=== PATIENT | male | born 1945 | race Caucasian/White ===

== ENCOUNTER 2016-03-17 14:18 | Emergency (ER) | payer MEDICAID, MEDICARE ==
[2016-03-17] MEDS ORDERED: ALBUTEROL NEB 2.5 MG/3 ML INH STA (15:21)
[2016-03-17] MEDS ORDERED: ALBUTEROL NEB 2.5 MG/3 ML INH ONE (15:35)
== END 2016-03-17 16:42 | disposition home or self-care (01) ==
DX: J06.9 Acute upper respiratory infection, unspecified (principal); B97.89 Other viral agents as the cause of diseases classified elsewhere; R14.0 Abdominal distension (gaseous); I10 Essential (primary) hypertension; Z87.891 Personal history of nicotine dependence
CPT/HCPCS: 36415; 71020; 80053; 83690; 85025; 85610; 94640; 99283; 99284; G0480; J7613

== ENCOUNTER 2016-08-31 10:17 | Outpatient (CLI) | payer MEDICAID, MEDICARE | END 2016-08-31 10:18 | disposition critical access hospital (66) | LOC: EMS 10:17 | PROVIDERS: ATTEND Surgery | DX: R20.0 Anesthesia of skin (principal) | CPT/HCPCS: A0425; A0429 ==

== ENCOUNTER 2016-08-31 10:41 | Emergency (ER) | payer MEDICARE, MEDICAID ==
--- NOTE | 2016-08-31 11:11 | ED Physician Documentation ---
History of Present Illness - Stated complaint Stated Complaint: SOA - Chief complaint Chief Complaint: General - History obtained from History obtained from: Patient, EMS - History of Present Illness Pain level max: 0 Pain level now: 0 Improved by: nothing Worsened by: nothing - Additonal information Additional information: Patient arrives to the emergency department with no complaints. He states that his brother and his mother called the ambulance for him. The EMS crew states that the brother said that the patient was short of breath. Patient states that he is always short of breath and that this is not any worse than usual. Patient also states that he has not been taking his blood pressure medications. Does not remember what they are. The paramedics did not bring the medications with him. Review of Systems Ten Systems: 10 systems reviewed and negative Constitutional: denies: Fever, Chills Ears: denies: Ear pain Nose: denies: Rhinorrhea / runny nose, Congestion Throat: denies: Sore throat Cardiac: denies: Chest pain / pressure Respiratory: denies: Hemoptysis, Wheezing GI: denies: Abdominal Pain, Nausea, Vomiting, Diarrhea Skin: denies: Rash Musculoskeletal: denies: Neck pain, Back pain Neurologic: denies: Focal weakness, Numbness, Syncope, Confused, Altered mental status, Headache PD PAST MEDICAL HISTORY - Past Medical History Past Medical History: Yes Cardiovascular: Hypertension, High cholesterol GI: GERD Psych: Anxiety - Past Surgical History Past Surgical History: Yes General: EGD, Colonoscopy HEENT: Tonsil/Adenoidectomy - Present Medications Home Medications: Ambulatory Orders Medication Instructions Recorded Confirmed Albuterol Sulfate [Proventil Hfa 1 - 2 puffs IH Q4H PRN #1 03/17/16 Inhaler] hfa.[email or web address].[email or web address] - Allergies Allergies/Adverse Reactions: Allergies Allergy/AdvReac Type Severity Reaction Status Date / Time No Known Drug Allergies Allergy Verified 03/17/16 14:23 - Social History Does the pt smoke?: No Smoking Status: Former smoker Does the pt drink ETOH?: No Does the pt have substance abuse?: No PD ED PE NORMAL - Vitals Vital signs reviewed: Yes - General General: Alert and oriented X 3, No acute distress - HEENT HEENT: PERRL, Moist mucous membranes - Neck Neck: Supple, no meningeal sign - Cardiac Cardiac: RRR, Strong equal pulses - Respiratory Respiratory: No respiratory distress, Clear bilaterally - Abdomen Abdomen: Soft, Non tender, Other (mild distention with ascites) - Back Back: No spinal TTP - Derm Derm: Warm and dry - Neuro Neuro: Alert and oriented X 3 - Psych Psych: Normal mood, Normal affect Results - Vitals Vitals: Vital Signs - 24 hr 08/31/16 10:43 Temperature 36.6 C Heart Rate 107 H Respiratory 18 Rate Blood Pressure 198/129 H O2 Saturation 99 Oxygen O2 Source Room air - EKG (time done) 1054 Rate: Rate (enter#) (108) Rhythm: Sinus tachycardia [place]: Normal Intervals: Normal [place] QRS: Normal Ischemia: Normal ST segments, Q waves (III, aVF) PD MEDICAL DECISION MAKING - ED course Complexity details: reviewed results, re-evaluated patient, considered differential, d/w patient ED course: Patient is a 71-year-old male who lives alone whose brother and mother called an ambulance for him today. He has no complaints. The nurse spoke with the brother on the phone who also stated there were no acute issues, but he was concerned about the patient caring for himself. The patient is well kept here and doesn't want a social work instructor eval. He is cooperative, alert and oriented 3. He has not been taking his blood pressure medications and will restart this when he returns home and follow-up closely with [place] for [place] evaluation. No chest pain, headaches or shortness of breath. Does not need emergent paracentesis at this time. Is afebrile. His heart rate is actually lower than it usually is, normal heart rate is 115- 120 based on prior visits. Patient counseled regarding signs and symptoms for which I believe and urgent re-evaluation would be necessary. Patient with good understanding of and agreement to plan and is comfortable going home at this time This document was made in part using voice recognition software. While efforts are made to proofread this document, sound alike and grammatical errors may occur. Departure - Departure Disposition: 01 Home, Self Care Clinical Impression: Hypertension Qualifiers: Hypertension type: essential hypertension Qualified Code(s): I10 - Essential ( primary) hypertension Condition: Good Instructions: ED HTN Established Follow-Up: Andres Bermudez MD [Primary Care Provider] - Within 1 week Comments: Return if you worsen. You need to follow up with your doctor this week about your blood pressure. I cannot adjust your medications as I do not know what medications you are taking.
[2016-08-31 12:39] VITALS: BP 187/122
== END 2016-08-31 13:00 | disposition home or self-care (01) ==
LOC: EDUNIT# → ED 10:41
DX: I10 Essential (primary) hypertension (principal); R00.0 Tachycardia, unspecified; Z87.891 Personal history of nicotine dependence; Z91.14 Patient's other noncompliance with medication regimen
CPT/HCPCS: 93005; 99283

== ENCOUNTER 2017-06-25 04:55 | Outpatient (CLI) | payer MEDICARE, MEDICAID | END 2017-06-25 04:56 | disposition EMS.NT | LOC: EMS 04:55 | PROVIDERS: ATTEND Surgery | DX: R29.6 Repeated falls (principal); S01.21XA Laceration without foreign body of nose, initial encounter; M54.5 Low back pain; W18.30XA Fall on same level, unspecified, initial encounter; Y92.009 Unspecified place in unspecified non-institutional (private) residence as the place of occurrence of the external cause; Z72.89 Other problems related to lifestyle ==

== ENCOUNTER 2017-07-01 07:34 | Emergency (ER) | payer MEDICARE, MEDICAID ==
--- NOTE | 2017-07-01 07:43 | ED Physician Documentation ---
PD HPI DYSPNEA - Stated complaint Stated Complaint: WHEEZING/SOA - Chief complaint Chief Complaint: Resp - History obtained from History obtained from: Patient, Family () - History of Present Illness Timing - onset: How many days ago (several days to a week of worsening dyspnea and wheezing, more noted at night. No real cough nor fevers. Has history of COPD and had been out of Anora (inhaler med) and resumed it couple days ago. had him off recent HCTZ and BP meds as was also going through alcohol withdrawal and symptoms, so not wanting him to have to go to bathroom so often. He has been sober about 10 days and is improved from the withdrawal. Still a little foggy thought process. He is having worst breathing at nights. Had had leg edema but that is improved from last month after starting the HCTZ.) Timing - duration: Days Timing - details: Gradual onset, Still present, Waxing and waning Inciting event(s): Out of meds (for some of them). No: Immobilization/travel Improved by: Rest, Sitting up Worsened by: Exertion, Laying flat Associated symptoms: Wheezing, Bilateral edema. No: Fever, Cough, Chest pain / discomfort, Palpitations Recently seen: Clinic (few weeks ago and was started on HCTZ. Continued on BP med. Given Ventolin inhaler. Continued on long acting inhaler meds (Anora).) Review of Systems Constitutional: denies: Fever, Chills Nose: reports: Rhinorrhea / runny nose, Congestion Throat: denies: Sore throat Cardiac: reports: Pedal edema. denies: Chest pain / pressure, Palpitations, Calf pain Respiratory: reports: Dyspnea, Wheezing. denies: Cough GI: denies: Nausea, Vomiting, Diarrhea : denies: Dysuria, Frequency Neurologic: reports: Generalized weakness, Confused (has been that way with the alcohol cessation and withdrawal.). denies: Focal weakness, Numbness PD PAST MEDICAL HISTORY - Past Medical History Cardiovascular: Hypertension, High cholesterol Respiratory: COPD Neuro: None Endocrine/Autoimmune: None GI: GERD Psych: Anxiety - Past Surgical History Past Surgical History: Yes General: EGD, Colonoscopy HEENT: Tonsil/Adenoidectomy - Present Medications Home Medications: Ambulatory Orders Medication Instructions Recorded Confirmed Albuterol Sulfate [Proventil Hfa 1 - 2 puffs IH Q4H PRN #1 03/17/16 Inhaler] hfa.[email or web address].ad Albuterol Sulf [Ventolin Hfa 1 - 2 puffs INH Q4HR PRN #1 inhaler 07/01/17 Inhaler] Amlodipine Besylate 10 mg PO DAILY 07/01/17 Aspirin 07/01/17 Dexamethasone [Decadron] 4 mg PO DAILY #5 tablet 07/01/17 Doxycycline Monohydrate 100 mg PO BID #14 tablet 07/01/17 Gabapentin 07/01/17 S-Adenosylmethionine Sul Tosyl 07/01/17 [Claude-E] Umeclidinium Brm/Vilanterol Tr 07/01/17 [Anoro Ellipta 62.5-25 Mcg INH] hydroCHLOROthiazide 25 mg PO DAILY 07/01/17 [Hydrochlorothiazide] - Allergies Allergies/Adverse Reactions: Allergies Allergy/AdvReac Type Severity Reaction Status Date / Time No Known Drug Allergies Allergy Verified 03/17/16 14:23 - Social History Does the pt smoke?: No Smoking Status: Former smoker Does the pt drink ETOH?: Yes ETOH Use: Other (heavy drinker until a week and a half ago, when had him stop. Has had withdrawal the past week but is improving from that. ) Does the pt have substance abuse?: No - Family History Family history: reports: Non contributory PD ED PE NORMAL - Vitals Vital signs reviewed: Yes - General General: Alert and oriented X 3, No acute distress, Well developed/nourished - HEENT HEENT: PERRL, EOMI (no diplopia. Bruising noted around the eye. ), Moist mucous membranes, Pharynx benign, Other (bruising noted around eyes and on right side of head; says from recent falls when intoxicated and then withdrawal. ) - Neck Neck: Supple, no meningeal sign, No adenopathy - Cardiac Cardiac: RRR, No murmur - Respiratory Respiratory: No: Clear bilaterally (wheezing noted bilaterally. Some faint crackles in bases. No coarse sounds. ) - Abdomen Abdomen: Soft, Non tender - Derm Derm: Normal color, Warm and dry - Extremities Extremities: No deformity, No tenderness to palpate, Normal ROM s pain, No calf tenderness / cord, Other (1+ edema in both legs and ankles. ) Results - Vitals Vitals: Vital Signs - 24 hr 07/01/17 07/01/17 07/01/17 07:40 09:15 10:24 Temperature 36.6 C Heart Rate 104 H 95 95 Respiratory 26 H 16 20 Rate Blood Pressure 163/104 H 157/102 H O2 Saturation 94 97 Oxygen O2 Source Room air - Labs Labs: Laboratory Tests 07/01/17 07/01/17 07/01/17 08:36 08:36 08:36 WBC 8.1 RBC 4.60 L Hgb 15.2 Hct 43.9 MCV 95.5 H MCH 33.0 H MCHC 34.6 RDW 16.4 H Plt Count 160 MPV 7.4 Neut # Not Reportable Lymph # Not Reportable [place] # Not Reportable Eos # Not Reportable Baso # Not Reportable Absolute Nucleated RBC Not Reportable Total Counted 100 Band Neuts % (Manual) 3 Reactive Lymphs % (Man) 1 Abnorm Lymph % (Manual) 0 Nucleated RBC % Not Reportable Neutrophils # (Manual) 5.3 Lymphocytes # (Manual) 0.8 L Monocytes # (Manual) 1.8 H Eosinophils # (Manual) 0.2 Basophils # (Manual) 0.0 Differential Comment MANUAL DIFFERENTIAL Manual Slide Review Indicated Platelet Estimate NORMAL (130-450,000) Platelet Morphology 1+ LARGE PLATELETS RBC Morph Micro Appear NORMAL APPEARANCE Sodium 134 L Potassium 3.0 L Chloride 91 L Carbon Dioxide 33 H Anion Gap 10.0 BUN 30 H Creatinine 1.5 H Estimated GFR (MDRD) 46 L Glucose 92 Calcium 9.0 Magnesium 1.7 Total Bilirubin 1.1 H AST 33 ALT 33 Alkaline Phosphatase 95 Troponin I < 0.04 B-Natriuretic Peptide Total Protein 6.9 Albumin 4.1 Globulin 2.8 Albumin/Globulin Ratio 1.5 Lipase 55 H Ethyl Alcohol < 5.0 07/01/17 08:36 WBC RBC Hgb Hct MCV MCH MCHC RDW Plt Count MPV Neut # Lymph # [place] # Eos # Baso # Absolute Nucleated RBC Total Counted Band Neuts % (Manual) Reactive Lymphs % (Man) Abnorm Lymph % (Manual) Nucleated RBC % Neutrophils # (Manual) Lymphocytes # (Manual) Monocytes # (Manual) Eosinophils # (Manual) Basophils # (Manual) Differential Comment Manual Slide Review Platelet Estimate Platelet Morphology RBC Morph Micro Appear Sodium Potassium Chloride Carbon Dioxide Anion Gap BUN Creatinine Estimated GFR (MDRD) Glucose Calcium Magnesium Total Bilirubin AST ALT Alkaline Phosphatase Troponin I B-Natriuretic Peptide 41 Total Protein Albumin Globulin Albumin/Globulin Ratio Lipase Ethyl Alcohol - Rads (name of study) chest xray Radiology: Prelim report reviewed (elevated left diaphragm and some atelectasis. ), EMP read contemporaneously head CT Radiology: Prelim report reviewed (no ICH. Has right orbital fracture.) PD MEDICAL DECISION MAKING - ED course Complexity details: reviewed results, re-evaluated patient, considered differential, d/w patient, d/w family () Departure - Departure Disposition: 01 Home, Self Care Clinical Impression: Acute exacerbation of COPD with asthma, Hypokalemia Dyspnea Qualifiers: Dyspnea type: shortness of breath Qualified Code(s): R06.02 - Shortness of breath Orbital floor fracture Qualifiers: Encounter type: initial encounter Fracture type: closed Laterality: right Qualified Code(s): S02.31XA - Fracture of orbital floor, right side, initial encounter for closed fracture Clinical Impression: (Ruled Out): Congestive heart failure Condition: Stable Record reviewed to determine appropriate education?: Yes Instructions: ED Dyspnea Shortness of Breath Follow-Up: Andres Bermudez MD [Primary Care Provider] - Prescriptions: Albuterol Sulf [Ventolin Hfa Inhaler] 1 - 2 puffs INH Q4HR PRN #1 inhaler PRN Reason: Shortness Of Air/Wheezing Dexamethasone [Decadron] 4 mg PO DAILY #5 tablet Doxycycline Monohydrate 100 mg PO BID #14 tablet Comments: Continue usual medications. Use the albuterol inhaler with spacer 2-3 puffs 4 times a day for the next 7-10 days and extra times if needed for wheezing. Decadron steroid daily for 5 more days. Doxycycline twice daily for a week for possible infection. He could also do a potassium supplements for the next week. There is no signs of congestive failure or heart failure at this time. It appears to be the airways of COPD and possible infection. Recheck if not improving over the next few days. Try to follow-up with your primary care in this coming week. Discharge Date/Time: 07/01/17 10:25
[2017-07-01] MEDS ORDERED: IPRATROPIUM/ALBUTEROL 3 ML NEB INH STA (07:57)
--- NOTE | 2017-07-01 08:40 | XRAY Report ---
EXAM: CHEST RADIOGRAPHY EXAM DATE: 07/01/2017 08:21 AM. CLINICAL HISTORY: Dyspnea and wheezing. COMPARISON: 03/17/2016 chest x-ray. TECHNIQUE: 2 views. FINDINGS: Lungs/Pleura: Elevated left hemidiaphragm with adjacent atelectasis and potential airspace disease. Mediastinum: Tortuous thoracic aorta with dense atherosclerotic calcifications. Other: None. IMPRESSION: 1. Elevated left hemidiaphragm with adjacent atelectasis and potential airspace disease. Question muc ous plugging or other cause of bronchial obstruction. Recommend clinical correlation and follow-up. [facility] Referring Provider Line: [phone] SITE ID: [id number]
[2017-07-01 08:55] LABS: BASOPHILS % (AUTO) 0.8 %; EOSINOPHILS % (AUTO) 1.8 %; HGB - HEMOGLOBIN 15.2 g/dL (14.0-18.0); LYMPHOCYTES % (AUTO) 9.4 %; MEAN CORPUSCULAR HGB CONC 34.6 g/dL (32.0-36.0); MEAN CORPUSCULAR VOLUME 95.5 fL (80.0-94.0); MEAN PLATELET VOLUME 7.4 fL (7.4-11.4); MONOCYTES % (AUTO) 22.1 %; NEUTROPHILS % (AUTO) 65.9 %; PLT - PLATELET COUNT 160 10^3/uL (130-450); RED CELL DISTRIBUTION WIDTH 16.4 % (12.0-15.0); WHITE BLOOD COUNT 8.1 x10^3/uL (4.8-10.8)
[2017-07-01 08:59] LABS: ABNORMAL LYMPHS % (MANUAL) 0 %
--- NOTE | 2017-07-01 09:10 | CT Report ---
EXAM: CT HEAD EXAM DATE: 07/01/2017 08:47 AM. CLINICAL HISTORY: Recent falls and facial bruisings. COMPARISON: None. TECHNIQUE: Multiaxial CT images were obtained from the foramen magnum to the vertex. Reformats: Coron al. IV contrast: None. In accordance with CT protocol optimization, one or more of the following dose reduction techniques w ere utilized for this exam: automated exposure control, adjustment of mA and/or KV based on patient s ize, or use of iterative reconstructive technique. FINDINGS: Parenchyma: No intraparenchymal hemorrhage. No evidence of mass, midline shift, or CT findings of inf arction. Weaver-white differentiation is distinct. Mild probable chronic microvascular ischemic change in the periventricular white matter and centrum semiovale. Extraaxial Spaces: Normal for age. No subdural or epidural collections identified. Ventricles: Normal in size and position accounting for mild generalized cerebral and cerebellar volum e loss. Sinuses and Orbits: Partial opacification of the right maxillary sinus with dependent debris and some hyperdense material, possibly blood products. Minimal opacity, possibly small mucous retention cyst or polyp in the left sphenoid sinus. Remaining paranasal sinuses and left orbit are unremarkable. Bones: There is a right orbital floor blowout fracture, of indeterminate age. There is mild inferior displacement of the inferior orbital floor fragment, the right inferior rectus muscle, and some orbit al fat. The right globe appears intact. There may be nondisplaced right nasal bone fracture of indete rminate age. Other: None. IMPRESSION: 1. No acute intracranial abnormality. No skull fracture. 2. Right orbital floor blowout fracture of indeterminate age with mild displacement of orbital conten ts as noted above. 3. Partial opacification of the right maxillary sinus with some hyperdense material, possibly blood p roducts. 4. Possible nondisplaced right nasal bone fracture of indeterminate age. 5. Mild chronic atrophic and probable microvascular ischemic changes. [facility] Referring Provider Line: [phone] SITE ID: [id number]
[2017-07-01 09:14] LABS: ALBUMIN 4.1 g/dL (3.2-5.5); ALBUMIN/GLOBULIN RATIO 1.5 (1.0-2.2); ALKALINE PHOSPHATASE 95 IU/L (42-121); ALT ALANINE AMINOTRANSFERASE 33 IU/L (10-60); AST ASPARTATE AMINOTRANSFERASE 33 IU/L (10-42); BILIRUBIN,TOTAL 1.1 mg/dL (0.2-1.0); BUN - BLOOD UREA NITROGEN 30 mg/dL (6-20); CARBON DIOXIDE - CO2 33 mmol/L (21-32); CHLORIDE 91 mmol/L (101-111); CREATININE 1.5 mg/dL (0.6-1.2); GFR - MDRD 46 (>89); GLUCOSE 92 mg/dL (70-100); LIPASE 55 U/L (22-51); MAGNESIUM 1.7 mg/dL (1.7-2.8); SODIUM 134 mmol/L (135-145); TOTAL PROTEIN 6.9 g/dL (6.7-8.2)
[2017-07-01 09:31] LABS: BAND NEUTROPHILS % (MANUAL) 3 %; EOSINOPHILS # (MANUAL) 0.2 10^3/uL (0-0.7); LYMPHOCYTES # (MANUAL) 0.8 10^3/uL (1.5-3.5); LYMPHOCYTES % (MANUAL) 9 %; MONOCYTES # (MANUAL) 1.8 10^3/uL (0.0-1.0); NEUTROPHILS # (MANUAL) 5.3 10^3/uL (1.5-6.6); NEUTROPHILS % (MANUAL) 62 %
[2017-07-01] MEDS ORDERED: POTASSIUM BICARB 25 MEQ TABLET PO STA (09:34)
[2017-07-01] MEDS ORDERED: DEXAMETHASONE 10 MG/ML VIAL IVP STA (09:34)
[2017-07-01] MEDS ORDERED: DOXYCYCLINE 100 MG TABLET PO STA (09:34)
[2017-07-01 09:35] LABS: DIFFERENTIAL COMMENT MANUAL DIFFERENTIAL; PLATELET ESTIMATE, MANUAL NORMAL (130-450,000) (NORMAL); PLATELET MORPHOLOGY 1+ LARGE PLATELETS (NORMAL); RBC MORPHOLOGY (MULTIPLE) NORMAL APPEARANCE (NORMAL)
[2017-07-01 10:25] VITALS: BP 157/102
== END 2017-07-01 10:25 | disposition home or self-care (01) ==
LOC: ED 07:34
DX: J44.1 Chronic obstructive pulmonary disease with (acute) exacerbation (principal); S02.31XA Fracture of orbital floor, right side, initial encounter for closed fracture; X58.XXXA Exposure to other specified factors, initial encounter; I10 Essential (primary) hypertension; E78.00 Pure hypercholesterolemia, unspecified; K21.9 Gastro-esophageal reflux disease without esophagitis; Z79.82 Long term (current) use of aspirin; Z87.891 Personal history of nicotine dependence
CPT/HCPCS: 36415; 70450; 71046; 80053; 83690; 83735; 83880; 84484; 85025; 93005; 94640; 96374; 99283; 99284; A9270; G0480; 80320

== ENCOUNTER 2017-07-14 08:25 | Outpatient (CLI) | payer MEDICARE, MEDICAID | END 2017-07-14 08:26 | disposition EMS.NT | LOC: EMS 08:25 | PROVIDERS: ATTEND Surgery | DX: R53.1 Weakness (principal); R47.81 Slurred speech; W18.30XA Fall on same level, unspecified, initial encounter; Y92.003 Bedroom of unspecified non-institutional (private) residence as the place of occurrence of the external cause; Z72.89 Other problems related to lifestyle ==

== ENCOUNTER 2017-07-26 21:25 | Outpatient (CLI) | payer MEDICAID, MEDICARE | END 2017-07-26 21:26 | disposition critical access hospital (66) | LOC: EMS 21:25 | PROVIDERS: ATTEND Surgery | DX: R41.82 Altered mental status, unspecified (principal); R15.9 Full incontinence of feces; R32 Unspecified urinary incontinence; Z72.89 Other problems related to lifestyle | CPT/HCPCS: A0425; A0427 ==

== ENCOUNTER 2017-07-26 21:56 | Emergency (ER) | payer MEDICARE, MEDICAID ==
[2017-07-26 22:22] LABS: HGB - HEMOGLOBIN 14.5 g/dL (14.0-18.0); WHITE BLOOD COUNT 4.2 x10^3/uL (4.8-10.8)
[2017-07-26 22:26] LABS: BASOPHILS % (AUTO) 0.5 %; LYMPHOCYTES % (AUTO) 17.2 %; MEAN CORPUSCULAR HEMOGLOBIN 32.3 pg (27.0-31.0); MEAN CORPUSCULAR HGB CONC 32.5 g/dL (32.0-36.0); MEAN CORPUSCULAR VOLUME 99.5 fL (80.0-94.0); MEAN PLATELET VOLUME 7.3 fL (7.4-11.4); MONOCYTES % (AUTO) 8.8 %; NEUTROPHILS % (AUTO) 72.5 %; PLT - PLATELET COUNT 67 10^3/uL (130-450); RED BLOOD COUNT 4.49 10^6/uL (4.70-6.10); RED CELL DISTRIBUTION WIDTH 18.9 % (12.0-15.0)
[2017-07-26 22:29] LABS: VBG BASE EXCESS 1.4 mmol/L (-2 - +2); VBG PCO2 59.1 mmHg (41-51); VBG PH 7.312 (7.31-7.41); VBG PO2 49.2 mmHg (25-47)
[2017-07-26 22:31] LABS: ABNORMAL LYMPHS % (MANUAL) 0 %
[2017-07-26 22:40] LABS: ALBUMIN 3.6 g/dL (3.2-5.5); ALBUMIN/GLOBULIN RATIO 1.4 (1.0-2.2); ALKALINE PHOSPHATASE 65 IU/L (42-121); ALT ALANINE AMINOTRANSFERASE 31 IU/L (10-60); AST ASPARTATE AMINOTRANSFERASE 40 IU/L (10-42); BILIRUBIN,TOTAL 1.9 mg/dL (0.2-1.0); BUN - BLOOD UREA NITROGEN 27 mg/dL (6-20); CALCIUM 7.5 mg/dL (8.5-10.3); CARBON DIOXIDE - CO2 31 mmol/L (21-32); CHLORIDE 93 mmol/L (101-111); CK- CREATINE KINASE 113 IU/L (22-269); CREATININE 1.1 mg/dL (0.6-1.2); GFR - MDRD 66 (>89); GLUCOSE 118 mg/dL (70-100); LIPASE 37 U/L (22-51); SODIUM 137 mmol/L (135-145); TOTAL PROTEIN 6.2 g/dL (6.7-8.2)
[2017-07-26 22:40] LABS: GLUCOSE, URINE (UA) NEGATIVE (NEGATIVE); KETONES,URINE (UA) 40 mg/dL (NEGATIVE); LEUKOCYTE ESTERASE, URINE NEGATIVE (NEGATIVE); NITRITE,URINE NEGATIVE (NEGATIVE); OCCULT BLOOD,URINE MODERATE (NEGATIVE); PROTEIN,URINE 100 mg/dL (NEGATIVE); UROBILINOGEN,URINE 1 (NORMAL) E.U./dL (NORMAL)
[2017-07-26 22:41] LABS: CLARITY,URINE CLEAR (CLEAR)
[2017-07-26 22:43] LABS: BILIRUBIN,URINE NEGATIVE (NEGATIVE); ICTOTEST,URINE NEGATIVE
[2017-07-26 22:48] LABS: BACTERIA,URINE Rare /HPF (None Seen); MUCUS,URINE Few Strands; SQUAMOUS EPITHELIAL CELL,UR MOD Squamous (<= Few)
[2017-07-26 22:49] LABS: BAND NEUTROPHILS % (MANUAL) 2 %; EOSINOPHILS # (MANUAL) 0.2 10^3/uL (0-0.7); KETONES, SERUM (ACETEST) SMALL (NEGATIVE); LYMPHOCYTES # (MANUAL) 0.5 10^3/uL (1.5-3.5); LYMPHOCYTES % (MANUAL) 10 %; METAMYELOCYTES % (MANUAL) 3 %; MONOCYTES # (MANUAL) 0.4 10^3/uL (0.0-1.0); MYELOCYTES % (MANUAL) 2 %; NEUTROPHILS # (MANUAL) 2.9 10^3/uL (1.5-6.6); NEUTROPHILS % (MANUAL) 67 %
[2017-07-26 22:50] LABS: PLATELET ESTIMATE, MANUAL DECREASED (<130,000) (NORMAL); PLATELET MORPHOLOGY NORMAL APPEARANCE (NORMAL)
--- NOTE | 2017-07-26 22:59 | XRAY Preliminary Report ---
Exam: XR CHEST 1 VIEW X-RAY IMPRESSION: 1. Hypoventilatory exam with findings suggestive of mild CHF/volume overload with possible small left pleural effusion. 2. Asymmetric elevation of the left hemidiaphragm as before, though not present on remote prior exam, this could be due to chronic volume loss in the left lung or phrenic nerve dysfunction. Left lower l madeline airspace disease difficult to exclude. 3. Findings suggestive of new mild cardiomegaly and/or pericardial effusion. [facility] SITE ID: [id number]
--- NOTE | 2017-07-26 23:07 | XRAY Report ---
EXAM: CHEST RADIOGRAPHY EXAM DATE: 07/26/2017 10:22 PM. CLINICAL HISTORY: Hypoxia. COMPARISON: 07/01/2017 and 03/17/2016. TECHNIQUE: 1 view. FINDINGS: Lungs/Pleura: Lung volumes are low and there is asymmetric elevation of the left hemidiaphragm. Left lung base opacity difficult to exclude. There may be a small left pleural effusion. No significant ri ght pleural effusion. Pulmonary vasculature is engorged and indistinct with peribronchial cuffing. No pneumothorax. Mediastinum: The heart appears mildly enlarged, increased since prior exam, even allowing for frontal technique and hypoventilation. The vascular pedicle is prominent. There is calcific atherosclerosis of the aorta. The lucien are obscured. Other: None. IMPRESSION: 1. Hypoventilatory exam with findings suggestive of mild CHF/volume overload with possible small left pleural effusion. 2. Asymmetric elevation of the left hemidiaphragm as before, though not present on remote prior exam, this could be due to chronic volume loss in the left lung or phrenic nerve dysfunction. Left lower l madeline airspace disease difficult to exclude. 3. Findings suggestive of new mild cardiomegaly and/or pericardial effusion. [facility] Referring Provider Line: [phone] SITE ID: [id number]
[2017-07-26] MEDS ORDERED: FUROSEMIDE 40 MG/4 ML VIAL IVP STA (23:23)
--- NOTE | 2017-07-26 23:44 | ED Physician Documentation ---
History of Present Illness - Stated complaint Stated Complaint: AMS - Chief complaint Chief Complaint: Neuro - History obtained from History obtained from: Patient, Family, EMS - History of Present Illness Timing: Unknown - Additonal information Additional information: Patient is a 71 year old male with a history of htn, alcoholism and copd who was brought in by ems for altered mental status and hypoxia. According to patient, ems and family, the patient's had come down from [place] to check in on the patient, which she does every few months or so. She found to patient to be more confused than usual, as well as irregular breathing. She also reports that the patient has been falling a lot. She states that the patient quit eating for the most part and only drinks. Review of Systems Unable to obtain: Confused PD PAST MEDICAL HISTORY - Past Medical History Past Medical History: Yes Cardiovascular: Hypertension, High cholesterol Respiratory: COPD Endocrine/Autoimmune: None GI: GERD Psych: Anxiety - Past Surgical History Past Surgical History: Yes General: EGD, Colonoscopy HEENT: Tonsil/Adenoidectomy - Present Medications Home Medications: Ambulatory Orders Medication Instructions Recorded Confirmed Albuterol Sulfate [Proventil Hfa 1 - 2 puffs IH Q4H PRN #1 03/17/16 Inhaler] [email or web address] Albuterol Sulf [Ventolin Hfa 1 - 2 puffs INH Q4HR PRN #1 inhaler 07/01/17 Inhaler] Amlodipine Besylate 10 mg PO DAILY 07/01/17 Aspirin 07/01/17 Dexamethasone [Decadron] 4 mg PO DAILY #5 tablet 07/01/17 Doxycycline Monohydrate 100 mg PO BID #14 tablet 07/01/17 Gabapentin 07/01/17 S-Adenosylmethionine Sul Tosyl 07/01/17 [Claude-E] Umeclidinium Brm/Vilanterol Tr 07/01/17 [Anoro Ellipta 62.5-25 Mcg INH] hydroCHLOROthiazide 25 mg PO DAILY 07/01/17 [Hydrochlorothiazide] - Allergies Allergies/Adverse Reactions: Allergies Allergy/AdvReac Type Severity Reaction Status Date / Time No Known Drug Allergies Allergy Verified 07/26/17 22:08 - Social History Does the pt smoke?: No Smoking Status: Never smoker Does the pt drink ETOH?: Yes Does the pt have substance abuse?: No - Immunizations Immunizations are current?: No - POLST Patient has POLST: No PD ED PE NORMAL - Vitals Vital signs reviewed: Yes - HEENT HEENT: Atraumatic - Neck Neck: No JVD PD ED PE EXPANDED - General General: Alert, Disheveled, poorly kept - HEENT HEENT: Dry mucous membranes - Cardiac Cardiac: Tachy - Respiratory Respiratory: Labored, Retractions - Abdomen Abdomen: Other (obese) - Extremities Extremities: Pedal edema bilateral - Neuro Neuro: Normal motor, Other (moves all extremities, alert and oriented times 2 ) - GCS Eye Opening: To Voice Motor: Obeys Commands Verbal: Confused Total: 13 Results - Vitals Vitals: Vital Signs - 24 hr 07/26/17 07/26/17 07/26/17 22:01 22:08 22:25 Temperature 36.2 C L Heart Rate 109 H 101 H 99 Respiratory 22 20 21 Rate Blood Pressure 188/130 H 182/124 H 143/96 H O2 Saturation 82 L 95 93 07/26/17 07/27/17 22:54 00:23 Temperature 36.5 C Heart Rate 97 100 Respiratory 21 15 Rate Blood Pressure 153/92 H 167/71 H O2 Saturation 93 96 Oxygen O2 Source Nasal cannula Oxygen Flow Rate 4 - EKG (time done) 2206 Rate: Rate (enter#) (101) Rhythm: Sinus tachycardia [place]: LAD Ischemia: Q waves Compare to prior EKG: Changed from prior EKG - Labs Labs: Laboratory Tests 07/26/17 07/26/17 07/26/17 22:13 22:13 22:13 WBC 4.2 L RBC 4.49 L Hgb 14.5 Hct 44.6 MCV 99.5 H MCH 32.3 H MCHC 32.5 RDW 18.9 H Plt Count 67 L MPV 7.3 L Neut # Not Reportable Lymph # Not Reportable [place] # Not Reportable Eos # Not Reportable Baso # Not Reportable Absolute Nucleated RBC Not Reportable Total Counted 100 Band Neuts % (Manual) 2 Reactive Lymphs % (Man) 3 Abnorm Lymph % (Manual) 0 Metamyelocytes % 3 H Myelocytes % 2 H Nucleated RBC % Not Reportable Neutrophils # (Manual) 2.9 Lymphocytes # (Manual) 0.5 L Monocytes # (Manual) 0.4 Eosinophils # (Manual) 0.2 Basophils # (Manual) 0.0 Nucleated RBCs 1 Manual Slide Review Indicated Platelet Estimate DECREASED (<130,000) Platelet Morphology NORMAL APPEARANCE RBC Morph Micro Appear 1+ MOOREZINA GOODE BODY VBG pH VBG pCO2 VBG pO2 VBG HCO3 VBG Total CO2 VBG O2 Saturation VBG Base Excess Sodium 137 Potassium 3.3 L Chloride 93 L Carbon Dioxide 31 Anion Gap 13.0 BUN 27 H Creatinine 1.1 Estimated GFR (MDRD) 66 L Glucose 118 H Lactic Acid Calcium 7.5 L Total Bilirubin 1.9 H AST 40 ALT 31 Alkaline Phosphatase 65 Total Creatine Kinase 113 Troponin I 0.15 B-Natriuretic Peptide Total Protein 6.2 L Albumin 3.6 Globulin 2.6 Albumin/Globulin Ratio 1.4 Lipase 37 TSH Urine Color Urine Clarity Urine pH Ur Specific [place] Urine Protein Urine Glucose (UA) Urine Ketones Urine Occult Blood Urine Nitrite Urine Bilirubin Urine Urobilinogen Ur Leukocyte Esterase Urine RBC Urine WBC Ur Squamous Epith Cells Urine Bacteria Urine Mucus Ur Microscopic Review Urine Culture Comments Ethyl Alcohol 248.4 Serum Ketones SMALL H 07/26/17 07/26/17 07/26/17 22:13 22:13 22:13 WBC RBC Hgb Hct MCV MCH MCHC RDW Plt Count MPV Neut # Lymph # [place] # Eos # Baso # Absolute Nucleated RBC Total Counted Band Neuts % (Manual) Reactive Lymphs % (Man) Abnorm Lymph % (Manual) Metamyelocytes % Myelocytes % Nucleated RBC % Neutrophils # (Manual) Lymphocytes # (Manual) Monocytes # (Manual) Eosinophils # (Manual) Basophils # (Manual) Nucleated RBCs Manual Slide Review Platelet Estimate Platelet Morphology RBC Morph Micro Appear VBG pH VBG pCO2 VBG pO2 VBG HCO3 VBG Total CO2 VBG O2 Saturation VBG Base Excess Sodium Potassium Chloride Carbon Dioxide Anion Gap BUN Creatinine Estimated GFR (MDRD) Glucose Lactic Acid 1.6 Calcium Total Bilirubin AST ALT Alkaline Phosphatase Total Creatine Kinase Troponin I B-Natriuretic Peptide 342 H Total Protein Albumin Globulin Albumin/Globulin Ratio Lipase TSH 2.76 Urine Color Urine Clarity Urine pH Ur Specific [place] Urine Protein Urine Glucose (UA) Urine Ketones Urine Occult Blood Urine Nitrite Urine Bilirubin Urine Urobilinogen Ur Leukocyte Esterase Urine RBC Urine WBC Ur Squamous Epith Cells Urine Bacteria Urine Mucus Ur Microscopic Review Urine Culture Comments Ethyl Alcohol Serum Ketones 07/26/17 07/26/17 22:13 22:31 WBC RBC Hgb Hct MCV MCH MCHC RDW Plt Count MPV Neut # Lymph # [place] # Eos # Baso # Absolute Nucleated RBC Total Counted Band Neuts % (Manual) Reactive Lymphs % (Man) Abnorm Lymph % (Manual) Metamyelocytes % Myelocytes % Nucleated RBC % Neutrophils # (Manual) Lymphocytes # (Manual) Monocytes # (Manual) Eosinophils # (Manual) Basophils # (Manual) Nucleated RBCs Manual Slide Review Platelet Estimate Platelet Morphology RBC Morph Micro Appear VBG pH 7.312 VBG pCO2 59.1 H VBG pO2 49.2 H VBG HCO3 29.2 H VBG Total CO2 31.0 H VBG O2 Saturation 77.9 VBG Base Excess 1.4 Sodium Potassium Chloride Carbon Dioxide Anion Gap BUN Creatinine Estimated GFR (MDRD) Glucose Lactic Acid Calcium Total Bilirubin AST ALT Alkaline Phosphatase Total Creatine Kinase Troponin I B-Natriuretic Peptide Total Protein Albumin Globulin Albumin/Globulin Ratio Lipase TSH Urine Color YELLOW Urine Clarity CLEAR Urine pH 6.0 Ur Specific [place] >=1.030 H Urine Protein 100 H Urine Glucose (UA) NEGATIVE Urine Ketones 40 H Urine Occult Blood MODERATE H Urine Nitrite NEGATIVE Urine Bilirubin NEGATIVE Urine Urobilinogen 1 (NORMAL) Ur Leukocyte Esterase NEGATIVE Urine RBC 11-25 H Urine WBC 0-3 Ur Squamous Epith Cells MOD Squamous H Urine Bacteria Rare Urine Mucus Few Strands Ur Microscopic Review INDICATED Urine Culture Comments NOT INDICATED Ethyl Alcohol Serum Ketones - Rads (name of study) chest x-ray Radiology: Final report received (cardiomegaly, pulmonary vascular congestion, pleural effusion) PD MEDICAL DECISION MAKING - ED course Complexity details: reviewed old records, reviewed results, re-evaluated patient , considered differential, d/w patient, d/w family, d/w analysis consultant ED course: Patient was seen and examined at bedside. patient was placed on supplemental oxygen since he was saturating at 88% on room air. IV access was gained and labs were drawn. ekg was performed and showed no signs of any acute ischemic changes. chest x-ray was performed and showed cardiomegaly and pleural effusions. Patient had originally started on IV hydration for tachycardia but fluids were stopped when the chest x-ray and bnp came back. Patient required further care and there were no inpatient beds available. The closest available hospital was [facility]. Case was discussed with the hospitalist and the line closer. Patient was accepted by the hospitalist. Patient was treated with lasix and arrangements were made for transfer. patient required no further work up and was stable for discharge with outpatient follow up. Departure - Departure Disposition: 02 Transfer Acute Care Hosp Clinical Impression: Congestive heart failure of unknown etiology Condition: Stable Discharge Date/Time: 07/27/17 01:15
--- NOTE | 2017-07-27 00:19 | CT Report ---
EXAM: CT HEAD EXAM DATE: 07/26/2017 11:50 PM. CLINICAL HISTORY: Decreased mental status, multiple falls. COMPARISON: Prior head CT 07/01/2017. TECHNIQUE: Multiaxial CT images were obtained from the foramen magnum to the vertex. Reformats: Coron al. IV contrast: None. In accordance with CT protocol optimization, one or more of the following dose reduction techniques w ere utilized for this exam: automated exposure control, adjustment of mA and/or KV based on patient s ize, or use of iterative reconstructive technique. FINDINGS: Parenchyma: No intraparenchymal hemorrhage. No evidence of mass, midline shift, or CT findings of inf arction. Weaver-white differentiation is distinct. Extraaxial Spaces: Mild diffuse prominence of sulci. No subdural or epidural collections identified. Ventricles: Moderate dilatation of lateral and third ventricles. No mass effect. No midline shift. Sinuses and Orbits: There are no sinus fluid levels. There is a remote right orbital floor fracture. There is bilateral proptosis. Bones: Remote right orbital floor and nasal bone fractures. Other: None. IMPRESSION: No acute intracranial process. [facility] Referring Provider Line: [phone] SITE ID: [id number]
--- NOTE | 2017-07-27 00:19 | CT Preliminary Report ---
Exam: CT HEAD W/O IMPRESSION: No acute intracranial process. [facility] SITE ID: [id number]
[2017-07-27 00:28] VITALS: BP 167/71
== END 2017-07-27 01:15 | disposition short-term general hospital (02) ==
LOC: EDUNIT# → ED 21:56
DX: I11.0 Hypertensive heart disease with heart failure (principal); I50.9 Heart failure, unspecified; R00.0 Tachycardia, unspecified; E78.00 Pure hypercholesterolemia, unspecified
CPT/HCPCS: 36415; 51701; 70450; 71045; 80053; 81001; 82009; 82550; 82803; 83605; 83690; 83880; 84443; 84484; 85025; 87040; 93005; 96374; 99284; 99285; G0480; 80320; 81003; 87086

== ENCOUNTER 2017-08-13 10:20 | Outpatient (CLI) | payer MEDICARE, MEDICAID | END 2017-08-13 10:21 | disposition critical access hospital (66) | LOC: EMS 10:20 | PROVIDERS: ATTEND Surgery | DX: R46.89 Other symptoms and signs involving appearance and behavior (principal); R45.1 Restlessness and agitation; R41.82 Altered mental status, unspecified | CPT/HCPCS: A0425; A0429 ==

== ENCOUNTER 2017-08-13 10:49 | Emergency (ER) | payer MEDICARE, MEDICAID ==
--- NOTE | 2017-08-13 12:19 | ED Physician Documentation ---
PD HPI MHE - Stated complaint Stated Complaint: HBD - Chief complaint Chief Complaint: MHE - History obtained from History obtained from: Patient, Police - History of Present Illness Primary symptom: No: Suicidal ideation, Suicide attempt, Homicidal ideation Timing - onset: Chronic Pain level max: 0 Pain level now: 0 Contributing factors: Substance abuse - ETOH - Additional information Additional information: Patient is a 71-year-old male with a long history of alcoholism. Per police, this morning he was chasing his around the house with a cane and she appeared scared of him. He is on probation and refused to give a blood alcohol test or a alcohol breath test. The police have placed him on an involuntary mental health hold for trying to harm his . They brought him here for evaluation. Review of Systems Constitutional: denies: Fever, Chills Ears: denies: Ear pain Nose: denies: Rhinorrhea / runny nose, Congestion Throat: denies: Sore throat Cardiac: denies: Chest pain / pressure Respiratory: denies: Cough GI: denies: Abdominal Pain, Nausea, Vomiting, Diarrhea Skin: denies: Rash Musculoskeletal: denies: Neck pain, Back pain Neurologic: denies: Headache PD PAST MEDICAL HISTORY - Past Medical History Past Medical History: Yes Cardiovascular: Hypertension, High cholesterol Respiratory: COPD Endocrine/Autoimmune: None GI: GERD Psych: Anxiety - Past Surgical History Past Surgical History: Yes General: EGD, Colonoscopy HEENT: Tonsil/Adenoidectomy - Present Medications Home Medications: Ambulatory Orders Medication Instructions Recorded Confirmed Albuterol Sulfate [Proventil Hfa 1 - 2 puffs IH Q4H PRN #1 03/17/16 Inhaler] [email or web address] Albuterol Sulf [Ventolin Hfa 1 - 2 puffs INH Q4HR PRN #1 inhaler 07/01/17 Inhaler] Amlodipine Besylate 10 mg PO DAILY 07/01/17 Aspirin 07/01/17 Dexamethasone [Decadron] 4 mg PO DAILY #5 tablet 07/01/17 Doxycycline Monohydrate 100 mg PO BID #14 tablet 07/01/17 Gabapentin 07/01/17 S-Adenosylmethionine Sul Tosyl 07/01/17 [Claude-E] Umeclidinium Brm/Vilanterol Tr 07/01/17 [Anoro Ellipta 62.5-25 Mcg INH] hydroCHLOROthiazide 25 mg PO DAILY 07/01/17 [Hydrochlorothiazide] - Allergies Allergies/Adverse Reactions: Allergies Allergy/AdvReac Type Severity Reaction Status Date / Time No Known Drug Allergies Allergy Verified 07/26/17 22:08 - Social History Does the pt smoke?: No Smoking Status: Never smoker Does the pt drink ETOH?: Yes ETOH Use: Liquor Does the pt have substance abuse?: No - Immunizations Immunizations are current?: No - POLST Patient has POLST: No PD ED PE NORMAL - Vitals Vital signs reviewed: Yes - General General: Alert and oriented X 3, No acute distress, Other (+etoh odor) - HEENT HEENT: Moist mucous membranes - Neck Neck: Supple, no meningeal sign - Cardiac Cardiac: RRR - Respiratory Respiratory: No respiratory distress, Clear bilaterally - Abdomen Abdomen: Soft, Non tender, Non distended - Back Back: No spinal TTP - Derm Derm: Warm and dry, No rash - Extremities Extremities: No edema - Neuro Neuro: Alert and oriented X 3 - Psych Psych: Normal mood, Normal affect Results - Vitals Vitals: Vital Signs - 24 hr 08/13/17 08/13/17 10:54 17:44 Temperature 36.4 C L Heart Rate 115 H 110 H Respiratory 18 12 Rate Blood Pressure 163/125 H 153/114 H O2 Saturation 98 95 Oxygen O2 Source Room air PD MEDICAL DECISION MAKING - ED course Complexity details: re-evaluated patient, considered differential, d/w patient, d/w digital marketing consultant ED course: Patient is a 71-year-old male who is brought in by police on an involuntary hold for attempting to harm his with a cane per police report. He also has a chronic alcoholic. He is uncooperative here. Refuses any blood work or urine samples. [facility] was dispatched, [place] who came and evaluated the patient. There are no detox beds available for him and does not meet criteria for an involuntary hold. Does not appear to be an imminent threat to himself or others today. His is comfortable with him coming back home. She will come and pick him up from the emergency department. He continues to refuse all testing. They will return or call 911 if things worsen. Patient and family counseled regarding signs and symptoms for which I believe and urgent re- evaluation would be necessary. Patient with good understanding of and agreement to plan and is comfortable going home at this time This document was made in part using voice recognition software. While efforts are made to proofread this document, sound alike and grammatical errors may occur. - Sepsis Event Vital Signs: Vital Signs - 24 hr 08/13/17 08/13/17 10:54 17:44 Temperature 36.4 C L Heart Rate 115 H 110 H Respiratory 18 12 Rate Blood Pressure 163/125 H 153/114 H O2 Saturation 98 95 Oxygen O2 Source Room air Departure - Departure Disposition: 01 Home, Self Care Clinical Impression: Alcohol abuse Condition: Good Instructions: ED Alcohol Abuse Follow-Up: your,doctor in 3 days [Other] Comments: Return if you worsen. You need to follow up with your doctor within 3 days. Discharge Date/Time: 08/13/17 17:55
[2017-08-13 17:45] VITALS: BP 153/114
== END 2017-08-13 17:55 | disposition home or self-care (01) ==
LOC: EDUNIT# → ED 10:49
DX: F10.10 Alcohol abuse, uncomplicated (principal); I10 Essential (primary) hypertension; E78.00 Pure hypercholesterolemia, unspecified; Z79.82 Long term (current) use of aspirin
CPT/HCPCS: 80053; 80307; 80320; 80329; 83690; 85025; 99283; 99284

== ENCOUNTER 2017-10-31 22:02 | Outpatient (CLI) | payer MEDICARE, MEDICAID | END 2017-10-31 22:03 | disposition E | LOC: EMS 22:02 | PROVIDERS: ATTEND Surgery ==